=== PATIENT | male | born 1975 | race African-American/Black ===

== ENCOUNTER → 2020-03-09 | Outpatient (CLI) | payer MEDICAID ==
[~2020-03-09] MED LIST: CAPS1ADH TP; CYCL10TA7 PO; FISH1CAP63 PO; GABA-290 PO; IBUP-2030 PO; LIDO15CR6 TP; MULT-1274 PO; TRAM50TA3 PO
== END | disposition home or self-care (01) ==
LOC: LAB 09:01
PROVIDERS: ATTEND Neurological Surgery
DX: Z01.818 Encounter for other preprocedural examination (principal); Z11.59 Encounter for screening for other viral diseases
CPT/HCPCS: C9803; U0003

== ENCOUNTER 2020-03-11 05:29 | Inpatient (IN) | payer MEDICAID ==
[2020-03-11] VITALS (21 sets, daily range): BP systolic 104–160; BP diastolic 55–98
[~2020-03-11] VITALS: Ht 175.3 cm; Wt 61.0 kg
[2020-03-11] MEDS ORDERED: LACTATED RINGERS 1,000 ML IV SCH (06:10)
[2020-03-11] MEDS ORDERED: LIDOCAINE HCL/EPINEPHRINE 1%-EPI 1:100,000 20 ML VIAL ONE (06:25)
[2020-03-11] MEDS ORDERED: THROMBIN (BOVINE) 5000 UNITS/VIAL TOP ONE (06:25)
[2020-03-11] MEDS ORDERED: BACITRACIN 50,000 UNITS/VIAL ONE (06:25)
[2020-03-11] MEDS ORDERED: LIDO15CR6 TP (07:53)
[2020-03-11] MEDS ORDERED: TRAM50TA3 PO (07:53)
[2020-03-11] MEDS ORDERED: IBUP-2030 PO (07:53)
[2020-03-11] MEDS ORDERED: GABA-290 PO (07:53)
[2020-03-11] MEDS ORDERED: CAPS1ADH TP (07:53)
[2020-03-11] MEDS ORDERED: CYCL10TA7 PO (07:53)
[2020-03-11] MEDS ORDERED: MULT-1274 PO (07:53)
[2020-03-11] MEDS ORDERED: FISH1CAP63 PO (07:53)
[2020-03-11] MEDS ORDERED: MORPHINE SULFATE 4 MG/ML CPJ (NOT FOR IM USE) IV PRN (08:45)
[2020-03-11] MEDS ORDERED: PROPOFOL 200MG/20ML VIAL IV ONE (09:14)
[2020-03-11] MEDS ORDERED: ROCURONIUM BROMIDE 10MG/ML VIAL 5ML IV ONE (09:14)
[2020-03-11] MEDS ORDERED: DEXAMETHASONE 4MG/ML 1ML VIAL ONE (09:15)
[2020-03-11] MEDS ORDERED: HYDROMORPHONE HCL/PF 2MG/ML (OR) ONE (09:27)
[2020-03-11] MEDS ORDERED: CEFAZOLIN SODIUM 1000MG/VIAL ONE (09:28)
[2020-03-11] MEDS ORDERED: METOPROLOL TARTRATE 5MG/5ML VIAL IV ONE ×2 (09:33→09:52)
[2020-03-11] MEDS ORDERED: HYDRALAZINE 20MG/ML VIAL ONE ×2 (09:43→09:58)
[2020-03-11] MEDS ORDERED: NEOSTIGMINE METHYLSULFATE 1MG/ML 10 ML VIAL ONE (11:07)
[2020-03-11] MEDS ORDERED: GLYCOPYRROLATE 0.2 MG/ML 2ML VIAL ONE (11:07)
[2020-03-11] MEDS ORDERED: MEPERIDINE HCL/PF 25MG/ML CPJ IV PRN (11:15)
[2020-03-11] MEDS ORDERED: LABETALOL 5MG/ML SYR 20 MG/4 ML SYRINGE IV PRN (11:15)
[2020-03-11] MEDS ORDERED: ONDANSETRON HCL 4MG/2ML INJ IV PRN ×2 (11:15→21:30)
[2020-03-11] MEDS: HYDROMORPHONE HCL/PF 2MG/ML CPJ IV PRN ×4 (11:43→12:14)
[2020-03-11] MEDS ORDERED: HYDROMORPHONE PCA 10MG/50ML IV PRN (11:50)
[2020-03-11] MEDS ORDERED: NALOXONE INJ IV PRN (12:00)
[2020-03-11] MEDS ORDERED: DEXAMETHASONE 4MG/ML 1ML VIAL IV SCH (12:00)
[2020-03-11] MEDS ORDERED: DIPHENHYDRAMINE INJ IV PRN (12:00)
[2020-03-11] MEDS ORDERED: ONDANSETRON INJ IV PRN (12:00)
[2020-03-11] MEDS ORDERED: CEFAZOLIN SODIUM 1000MG/VIAL IV SCH (14:00)
[2020-03-11] MEDS: DEXT 5%/LACTATED RINGERS 1,000 ML IV SCH (18:45)
[2020-03-11] MEDS: DEXAMETHASONE 4MG/ML 1ML VIAL IV SCH (20:12)
[2020-03-11] MEDS ORDERED: NICARDIPINE 100 MG in SODIUM CHLORIDE 0.9% 60 ML IV PRN (20:30)
[2020-03-11] MEDS: CEFAZOLIN 1000MG PREMIX 50 ML IV SCH (22:19)
[2020-03-12] VITALS (47 sets, daily range): BP systolic 106–148; BP diastolic 54–93
[2020-03-12] MEDS: DEXT 5%/LACTATED RINGERS 1,000 ML IV SCH ×3 (04:45→22:31)
[2020-03-12 05:57] LABS: CHLORIDE 106 mEq/L (98-107)
[2020-03-12] MEDS: CEFAZOLIN 1000MG PREMIX 50 ML IV SCH ×2 (06:00→13:04)
[2020-03-12] MEDS: DEXAMETHASONE 4MG/ML 1ML VIAL IV SCH ×3 (06:00→13:09)
[2020-03-12 06:15] LABS: HEMATOCRIT. 40.1 % (42.0-52.0); HEMOGLOBIN. 13.5 g/dL (14.0-18.0); MEAN CORPUSCULAR HEMOGLOBIN 32.6 pg (28.0-32.0); MEAN CORPUSCULAR VOLUME 96.8 fL (80.0-94.0); MEAN PLATELET VOLUME 9.7 fl (7.4-10.4); PLATELET 214 x1000/uL (130-400); RED BLOOD CELL COUNT 4.14 mill/uL (4.7-6.1); RED CELL DISTRIBUTION WIDTH 13.6 % (11.6-14.6)
[2020-03-12] MEDS ORDERED: ONDANSETRON INJ IV PRN (13:15)
[2020-03-12] MEDS ORDERED: DIPHENHYDRAMINE INJ IV PRN (13:15)
[2020-03-12] MEDS ORDERED: NALOXONE INJ IV PRN (13:15)
[2020-03-12 13:50] LABS: PLATELET ESTIMATE NORMAL
[2020-03-12] MEDS ORDERED: CYCLOBENZAPRINE 10MG TABLET PO PRN (14:15)
[2020-03-12] MEDS ORDERED: HYDROCODONE/ACETAMINOPHEN 10/325MG TABLET PO PRN (14:15)
[2020-03-12] MEDS: GABAPENTIN 300MG CAPSULE PO SCH (22:30)
[2020-03-13] VITALS: BP 110/65
[2020-03-13] MEDS: CEFAZOLIN 1000MG PREMIX 50 ML IV SCH (00:36)
[2020-03-13 04:00] VITALS: BP 133/73
[2020-03-13 08:00] VITALS: BP 113/71
[2020-03-13] MEDS: GABAPENTIN 300MG CAPSULE PO SCH ×2 (08:19→14:31)
[2020-03-13 12:00] VITALS: BP 107/64
== END 2020-03-13 14:38 | disposition home or self-care (01) | DRG 321 ==
LOC: OR 05:29 → MICUNO 18:00 → 6EST 03-12 12:48
PROVIDERS: ADMIT Internal Medicine; ATTEND Neurological Surgery
PROC: 0RG20A0 Fusion of 2 or more Cervical Vertebral Joints with Interbody Fusion Device, Anterior Approach, Anterior Column, Open Approach (ICD-10-PCS; principal; 2020-03-11)
PROC: 0RB30ZZ Excision of Cervical Vertebral Disc, Open Approach (ICD-10-PCS; 2020-03-11)
PROC: 4A11X4G Monitoring of Peripheral Nervous Electrical Activity, Intraoperative, External Approach (ICD-10-PCS; 2020-03-11)
DX: M48.02 Spinal stenosis, cervical region (principal); M47.12 Other spondylosis with myelopathy, cervical region; M50.01 Cervical disc disorder with myelopathy, high cervical region; M50.11 Cervical disc disorder with radiculopathy, high cervical region; M47.22 Other spondylosis with radiculopathy, cervical region; G89.4 Chronic pain syndrome; E78.5 Hyperlipidemia, unspecified; R13.10 Dysphagia, unspecified; G95.29 Other cord compression; G82.50 Quadriplegia, unspecified; D72.829 Elevated white blood cell count, unspecified; G90.9 Disorder of the autonomic nervous system, unspecified; D64.9 Anemia, unspecified; R73.9 Hyperglycemia, unspecified; R26.9 Unspecified abnormalities of gait and mobility; Z87.891 Personal history of nicotine dependence
CPT/HCPCS: 36415; 72040; 72141; 76000; 80048; 85025; 86850; 86900; 88311; 93005; 95863; 95925; 95926; 95928; 95929; 95940; 97116; 97162; 97165; 97535; C1713; J0360; J0690; J1100; J1170; J2405; J2704; J2710; J3490; J7121; L0172

== ENCOUNTER 2025-05-08 10:02 | Emergency (ER) | payer MEDICAID, MEDICARE ==
[~2025-05-08] VITALS: Ht 172.7 cm; Wt 64.0 kg
[~2025-05-08 10:02] MED LIST changes: +CYCL10TA21 PO; -CYCL10TA7 PO
[2025-05-08 10:09] VITALS: O2SAT 99
[2025-05-08] MEDS ORDERED: AMOX1TAB16 MT (10:51)
[2025-05-08] MEDS ORDERED: OFLO5DRO4 LEFT EAR (10:52)
[2025-05-08 11:02] VITALS: BP 116/83; PULSE 92; RESP 16; TEMP 36.9; O2SAT 99
== END 2025-05-08 11:08 | disposition home or self-care (01) ==
LOC: ER 10:02
DX: H66.92 Otitis media, unspecified, left ear (principal); H72.90 Unspecified perforation of tympanic membrane, unspecified ear
CPT/HCPCS: 99283